=== PATIENT | female | born 1965 ===

== ENCOUNTER 2018-05-31 09:30 | Outpatient (CLI) | payer OTHER ==
--- NOTE | 2018-05-31 14:03 | XRay Report ---
BILATERAL SHOULDER RADIOGRAPHS INDICATION: Low vision in right eye. High blood pressure, diabetes, thyroid. COMPARISON: None similar. FINDINGS: Frontal and Y views of both shoulders demonstrate normal humeral head contours, well positioned against the glenoid. Motion artifact partly degrades exam. Intact AC articulations. Slight degenerative spurring. Osteopenia not excluded. Normal imaged lung and ribs. CONCLUSION: No acute radiographic abnormality with slight, age-appropriate bilateral shoulder degenerative changes, as described. Thank you for the opportunity to participate in this patient's care.
--- NOTE | 2018-05-31 14:05 | XRay Report ---
LUMBAR SPINE RADIOGRAPHS INDICATION: Low vision in right eye, high blood pressure, diabetes, thyroid. COMPARISON: None similar at this institution. FINDINGS: AP and lateral lumbar spine radiographs demonstrate normal vertebral body stature, alignment and disc heights. Mild L4 superior endplate degenerative spurring towards the left on the frontal view as also an approximately 1 cm linear density/possible vascular calcification projecting over right L1 transverse process. Few small pelvic phleboliths. Distal aortic atherosclerotic calcifications noted. Intact SI joints. Possible constipation. CONCLUSION: No acute lumbar radiographic abnormality with few other findings, as above. Please correlate. Thank you for the opportunity to participate in this patient's care.
== END 2018-05-31 09:31 | disposition home or self-care (01) ==
LOC: XRAY 09:30
PROVIDERS: ATTEND Internal Medicine
DX: M19.012 Primary osteoarthritis, left shoulder (principal); M19.011 Primary osteoarthritis, right shoulder; H54.511A Low vision right eye category 1, normal vision left eye; E11.9 Type 2 diabetes mellitus without complications; R03.0 Elevated blood-pressure reading, without diagnosis of hypertension
CPT/HCPCS: 72100

== ENCOUNTER 2020-01-20 15:29 | Emergency (ER) | payer SELFPAY ==
[2020-01-20] MEDS ORDERED: oxyCODONE /ACETAMINOPHEN 5-325MG TAB PO ONE (16:34)
[2020-01-20 16:41] VITALS: BP 178/92
[2020-01-20] MEDS ORDERED: ONDANSETRON 4 MG/2 ML INJ IM ONE (16:49)
[2020-01-20] MEDS ORDERED: MORPHINE 4 MG/1 ML INJ IV ONE (16:49)
[2020-01-20 17:25] LABS: Basophils # (Auto) 0.1 K/mm3 (0.0-0.1); Basophils % (Auto) 1.2 % (0.0-1.8); Eosinophils # (Auto) 0.3 K/mm3 (0.0-0.4); Eosinophils % (Auto) 3.1 % (0.0-4.3); Hematocrit 34.5 % (30.3-42.9); Hemoglobin 11.3 gm/dl (10.1-14.3); Lymphocytes # (Auto) 1.7 K/mm3 (1.2-5.4); Lymphocytes % (Auto) 16.4 % (13.4-35.0); Mean Corpuscular HGB Conc 33 % (30-34); Mean Corpuscular Volume 90 fl (79-97); Monocytes # (Auto) 0.5 K/mm3 (0.0-0.8); Monocytes % (Auto) 4.4 % (0.0-7.3); Platelet Count 317 K/mm3 (140-440); Red Blood Count 3.84 M/mm3 (3.65-5.03); Red Cell Distribution Width 14.2 % (13.2-15.2)
[2020-01-20 17:39] LABS: Alanine Aminotransferase 12 units/L (7-56); Albumin 3.1 g/dL (3.9-5); BUN/Creatinine Ratio 22; Blood Urea Nitrogen 35 mg/dL (7-17); Hemolysis Index 6
[2020-01-20 17:45] LABS: INR 0.92 (0.87-1.13)
[2020-01-20 17:46] LABS: Partial Thromboplastin Time 24.9 Sec. (24.2-36.6)
--- NOTE | 2020-01-20 17:59 | Emergency Department Report ---
- General Chief Complaint: Laceration/Recheck/Suture Stated Complaint: LEFT ARM LACERATION Time Seen by Provider: 01/20/20 15:44 Source: patient, EMS Mode of arrival: Stretcher Limitations: Language Barrier - History of Present Illness Initial Comments: Patient is a 54-year-old female presents emergency room with complaints of an accidental laceration to the left wrist that occurred just prior to arrival. Patient states that she was holding something up and cutting it vertically and she accidentally slipped and cut her wrist. She states that there was a significant amount of bleeding and she applied a tourniquet to her arm. She states that she has tingling in her hand but denies any complete numbness. She denies any weakness. She is able to move the entire left upper extremity. She states that her tetanus has been within the last 5 years. Is a past medical history of diabetes and hypertension. No allergies to medications. - Related Data Previous Rx's Medication Instructions Recorded Last Taken Type Acetaminophen/Codeine [Tylenol 1 tab PO Q6H PRN #10 tab 01/20/20 Unknown Rx /Codeine # 3 tab] cephALEXin [Keflex] 500 mg PO QID 7 Days #28 cap 01/20/20 Unknown Rx Allergies Allergy/AdvReac Type Severity Reaction Status Date / Time No Known Allergies Allergy Unverified 01/20/20 16:49 ED Review of Systems ROS: Stated complaint: LEFT ARM LACERATION Other details as noted in HPI Comment: All other systems reviewed and negative ED Past Medical Hx - Past Medical History Previous Medical History?: Yes Hx Hypertension: Yes Hx Diabetes: Yes - Social History Smoking Status: Never Smoker Substance Use Type: Alcohol - Medications Home Medications: Home Medications Medication Instructions Recorded Confirmed Last Taken Type Acetaminophen/Codeine [Tylenol 1 tab PO Q6H PRN #10 tab 01/20/20 Unknown Rx /Codeine # 3 tab] cephALEXin [Keflex] 500 mg PO QID 7 Days #28 cap 01/20/20 Unknown Rx ED Physical Exam - General Limitations: Language Barrier General appearance: alert, in no apparent distress - Head Head exam: Present: atraumatic, normocephalic - Eye Eye exam: Present: normal appearance - ENT ENT exam: Present: mucous membranes moist - Extremities Exam Extremities exam: Present: other (4 cm laceration present to the left anterior wrist, there is significant bleeding present, apears to be dark blood, FROM, neurovascularly intact) - Neurological Exam Neurological exam: Present: alert, oriented X3 - Psychiatric Psychiatric exam: Present: normal affect, normal mood - Skin Skin exam: Present: warm, dry ED Course Vital Signs 01/20/20 01/20/20 01/20/20 15:34 16:39 16:53 Temperature 97.9 F 98.2 F Pulse Rate 88 86 83 Respiratory 16 20 17 Rate Blood Pressure 164/86 Blood Pressure 178/92 [Right] O2 Sat by Pulse 100 100 Oximetry 01/20/20 01/20/20 01/20/20 17:01 17:05 17:15 Temperature Pulse Rate 77 80 Respiratory 17 18 16 Rate Blood Pressure Blood Pressure [Right] O2 Sat by Pulse Oximetry 01/20/20 01/20/20 01/20/20 17:31 17:45 18:01 Temperature Pulse Rate 75 77 77 Respiratory 15 13 11 L Rate Blood Pressure Blood Pressure [Right] O2 Sat by Pulse Oximetry 01/20/20 18:15 Temperature Pulse Rate 70 Respiratory 16 Rate Blood Pressure Blood Pressure [Right] O2 Sat by Pulse Oximetry - Laceration /Wound Repair Left Anterior Arm Wound Location: upper extremity (left anterior forearm in the wrist) Wound Length (cm): 5 Wound's Depth, Shape: irregular Wound Explored: clean Irrigated w/ Saline (ccs): 500 Betadine Prep?: Yes Anesthesia: 1% Lidocaine Volume Anesthetic (ccs): 8 Wound Debrided: extensive Wound Repaired With: sutures Suture Size/Type: 4:0, proline Number of Sutures: 1 (1 running simple stitch) Layer Closure?: Yes (2 vic[address]) Deep Layer Suture Size/Type: 4:0 Sterile Dressing Applied?: Yes Progress: Wound irrigated with saline and thoroughly scrubbed with Betadine, no foreign body, no muscle or tendon involvement, Dr. Davis, ER attending evaluated and states that it is a venous bleed, 8 cc of 1% lidocaine without epinephrine used as anesthetic, Betadine prep again, sterile drapes applied, there are 2 small ar eas of bleeding, two 4-0 Vicryl used for qgnhau-[id number] stitches, electrocautery used for small areas of bleeding, hemostasis achieved, 4-0 Prolene used for skin closure, 1 simple running stitch placed, patient tolerated well, no complications, bleeding has resolved, sterile dressing applied ED Medical Decision Making - Lab Data Result diagrams: 01/20/20 16:47 01/20/20 16:47 - Medical Decision Making Patient is a 54-year-old female presents emergency room with complaints of an accidental laceration to the left wrist that occurred just prior to arrival. Patient states that she was holding something up and cutting it vertically and she accidentally slipped and cut her wrist. She states that there was a significant amount of bleeding and she applied a tourniquet to her arm. She states that she has tingling in her hand but denies any complete numbness. She denies any weakness. She is able to move the entire left upper extremity. She states that her tetanus has been within the last 5 years. Is a past medical history of diabetes and hypertension. No allergies to medications. VSS. on exam: 4 cm laceration present to the left anterior wrist, there is significant bleeding present, apears to be dark blood, FROM, neurovascularly intact. Laceration repaired per procedure note with hemostasis achieved and no complications. labs are stable, kidney dysfunction is likely chronic, discussed with Dr. Davis, advised to refer to PCP. given prescription for keflex and tylenol #3. advised pt Please take medication as prescribed. Do not drive or operate heavy machinery while taking pain medication. Please keep current dressing in place for 2 hours and then after 2 hours apply a loose dressing. Sutures need to be removed in 10 to 14 days. May wash area with soap and water and pat dry. No hot tub, no pool, no soaking water. Showering is fine. Follow-up with your primary care doctor for reexamination. Return the emergency room immediately for any new or worsening symptoms. Critical care attestation.: If time is entered above; I have spent that time in minutes in the direct care of this critically ill patient, excluding procedure time. ED Disposition Clinical Impression: Venous bleed Laceration of left wrist Qualifiers: Encounter type: initial encounter Qualified Code(s): S61.512A - Laceration without foreign body of left wrist, initial encounter CKD (chronic kidney disease) Qualifiers: Chronic kidney disease stage: unspecified stage Qualified Code(s): N18.9 - Chronic kidney disease, unspecified Disposition: - TO HOME OR SELFCARE Is pt being admited?: No Does the pt Need Aspirin: No Condition: Stable Instructions: Suture Care (ED), Laceration (ED), Chronic Kidney Disease (ED) Additional Instructions: Please take medication as prescribed. Do not drive or operate heavy machinery while taking pain medication. Please keep current dressing in place for 2 hours and then after 2 hours apply a loose dressing. Sutures need to be removed in 10 to 14 days. May wash area with soap and water and pat dry. No hot tub, no pool, no soaking water. Showering is fine. Follow-up with your primary care doctor for reexamination. Return the emergency room immediately for any new or worsening symptoms. [place] los medicamentos segn lo prescrito. No conduzca ni maneje maquinaria pesada mientras est tomando analgsicos. Mantenga el apsito actual en [place] lugar darlene 2 horas y luego de 2 horas aplique un apsito suelto. Las suturas deben retirarse en 10 a 14 santacruz. Puede elizabeth el timbo con agua y jabn y secar. Sin jacuzzi, sin piscina, sin agua para remojar. Ducharse est mallorie. Izzy un seguimiento con morrison mdico de atencin primaria para un nuevo examen. Regrese a la dyllan de emergencias de inmediato por cualquier sntoma nuevo o que empeore. Prescriptions: cephALEXin [Keflex] 500 mg PO QID 7 Days #28 cap Acetaminophen/Codeine [Tylenol /Codeine # 3 tab] 1 tab PO Q6H PRN #10 tab PRN Reason: Pain , Severe (7-10) Referrals: ARIADNA URBINA MD [Staff Physician] - 2-3 Days [facility] [Provider Group] - 2-3 Days Time of Disposition: 19:13 Print Language: HUNGARIAN
[2020-01-20] MEDS ORDERED: LIDOCAINE (1%) 10 MG/1 ML VIAL 20 ML MDV INFILTRATI ONE (19:16)
== END 2020-01-20 19:28 | disposition home or self-care (01) ==
LOC: ED 15:29
DX: S61.512A Laceration without foreign body of left wrist, initial encounter (principal); I12.9 Hypertensive chronic kidney disease with stage 1 through stage 4 chronic kidney disease, or unspecified chronic kidney disease; E11.22 Type 2 diabetes mellitus with diabetic chronic kidney disease; W45.8XXA Other foreign body or object entering through skin, initial encounter; Y93.89 Activity, other specified; Y92.89 Other specified places as the place of occurrence of the external cause; Y99.8 Other external cause status
CPT/HCPCS: 12042; 36415; 80053; 85025; 85610; 85730; 86850; 86900; 86901; 96372; 96374; 99284; J2270; J2405